=== PATIENT | male | born 1990 | race Caucasian/White ===

== ENCOUNTER 2021-05-04 06:05 | Emergency (ER) | payer BC ==
[2021-05-04] VITALS (9 sets, daily range): BP systolic 106–129; BP diastolic 59–79
[~2021-05-04] VITALS: Ht 182.9 cm; Wt 113.6 kg
--- NOTE | 2021-05-04 06:30 | NUR ---
PATIENT VOMITED X2, MD AWARE.
[2021-05-04] MEDS ORDERED: ondansetron/PF 4mg/2ml inj IV ONE (06:55)
[2021-05-04] MEDS ORDERED: normal saline 1000ml 1,000 ML IV ONE ×3 (06:55→08:50)
[2021-05-04] MEDS ORDERED: acetaminophen 325mg tablet PO ONE (06:55)
[2021-05-04 07:00] LABS: ALANINE AMINOTRANSFERASE 70 U/L (12-78); ALBUMIN 3.9 G/DL (3.4-5.0); ALBUMIN/GLOBULIN RATIO 0.8 (1.1-1.5); ALKALINE PHOSPHATASE 81 IU/L (46-116); ANION GAP 12 (8-16); ASPARTATE AMINO TRANSFERASE 30 U/L (10-37); BILIRUBIN,TOTAL 1.1 MG/DL (0.1-1.0); BLOOD UREA NITROGEN 13 MG/DL (7-18); BUN/CREATININE RATIO 9.6 (5.4-32.0); CHLORIDE 100 MMOL/L (99-107); CREATININE 1.35 MG/DL (0.60-1.10); GLUCOSE 155 MG/DL (70-104); POTASSIUM 4.3 MMOL/L (3.5-5.1); SODIUM 138 MMOL/L (135-145); TOTAL CARBON DIOXIDE 26.5 MMOL/L (24-32); TOTAL PROTEIN 8.5 G/DL (6.4-8.2); eGFR 61 ML/MIN
[2021-05-04 07:07] LABS: LIPASE 72 U/L (73-393)
[2021-05-04 07:14] LABS: BASOPHILS % (AUTO) 0.3 % (0-1); EOSINOPHILS % (AUTO) 0.4 % (0-6); HEMATOCRIT 48.1 % (42.0-52.0); HEMOGLOBIN 16.7 g/dl (14.0-17.9); LYMPHOCYTES # (AUTO) 1.4 X10'3 (1.1-4.8); LYMPHOCYTES % (AUTO) 18.3 % (21-51); MEAN CORPUSCULAR HEMOGLOBIN 30.5 PG (27.0-31.0); MEAN CORPUSCULAR HGB CONC 34.7 g/dL (33.0-36.5); MEAN PLATELET VOLUME 7.5 FL (7.4-10.4); MONOCYTES # (AUTO) 0.1 X10'3 (0-0.9); NEUTROPHILS # (AUTO) 5.9 X10'3 (1.8-7.7); PLATELET COUNT 180 X10'3 (140-440); RED BLOOD COUNT 5.47 X10'6 (4.70-6.10); WHITE BLOOD COUNT 7.4 X10'3 (4.5-11.0)
[2021-05-04] MEDS ORDERED: ketorolac tromethamine 15mg/ml inj. IV ONE (08:05)
[2021-05-04] MEDS ORDERED: iohexol 300mg/ml 100ml inj. ONE (10:13)
[2021-05-04] MEDS ORDERED: metroNIDAZOLE-Flagyl 500mg/NS 100 ML IV STA (11:52)
[2021-05-04] MEDS ORDERED: CefTRIAXone/D5W-Rocephin 1gm 50 ML IV ONE (11:55)
[2021-05-04] MEDS ORDERED: NO HOME MEDS (13:17)
[2021-05-04] MEDS ORDERED: HYDROmorphone 1 mg/ml syringe IV PRN (13:20)
[2021-05-04] MEDS ORDERED: ondansetron/PF 4mg/2ml inj IV PRN ×2 (13:20→14:15)
[2021-05-04] MEDS ORDERED: ringers solution, lacted 1,000 ML IV SCH ×2 (13:20→14:15)
--- NOTE | 2021-05-04 13:54 | NUR ---
Report given to Frannie DAWKINS in recovery. Pat taken to OR via [email or web address] at this time, grandmother at bedside.
[2021-05-04] MEDS ORDERED: dexamethasone sod phosphate 10mg/ml inj ONE (14:07)
[2021-05-04] MEDS ORDERED: sevoflurane 250ml liquid IH ONE (14:07)
[2021-05-04] MEDS ORDERED: morphine 4 MG/ML inj SYRINge IV PRN (14:15)
[2021-05-04] MEDS ORDERED: midazolam 1 mg/ML 2ml injection ONE (14:15)
[2021-05-04] MEDS ORDERED: fentaNYL/PF 50MCG/1 ML 2ML syringe ONE (14:15)
[2021-05-04] MEDS ORDERED: proCHLORperazine 10 MG/2 ml inj IV PRN (14:15)
[2021-05-04] MEDS ORDERED: meperidine/PF 25mg/ml syringe IV PRN ×3 (14:15)
[2021-05-04] MEDS ORDERED: morphine 2 MG/ML inj. syringe IV PRN (14:15)
[2021-05-04] MEDS ORDERED: propofol inj 20 ML IV ONE (14:16)
[2021-05-04] MEDS ORDERED: meperidine/PF 25mg/ml syringe ONE (14:16)
[2021-05-04] MEDS ORDERED: LIDOcaine 2% (20mg/ml) 5ml vial ONE (14:16)
[2021-05-04] MEDS ORDERED: rocuronium 10mg/ml inj IV ONE (14:20)
[2021-05-04] MEDS ORDERED: ondansetron/PF 4mg/2ml inj ONE (14:28)
[2021-05-04] MEDS ORDERED: BUPIVAcaine 0.5% inj/PF 30 ML ONE (14:28)
[2021-05-04] MEDS ORDERED: LIDOcaine 1% 30ml preserv. free vial ONE (14:45)
[2021-05-04] MEDS ORDERED: acetaminophen 1,000mg/100ml IV 100 ML IV ONE (15:07)
[2021-05-04] MEDS ORDERED: glycopyrrolate 0.2mg/ml inj ONE (15:09)
[2021-05-04] MEDS ORDERED: neostigmine methylsulfate 1 MG/ML 10ml vial ONE (15:09)
--- NOTE | 2021-05-04 15:28 | NUR ---
Received from OR via , accompanied by Anesthesiologist DR RM and report given by Anesthesiolgist. PT PRESENT WITH 20G LEFT AC, 3 BANDAIDS DRY AND INTACT, VSS. Addendum: 05/04/21 at 1533 by Frannie Duarte RN, RN Amended: Links added.
[2021-05-04] MEDS ORDERED: HYDROcodone/acetaminophen 5mg/325mg tablet PO PRN ×2 (15:35)
[2021-05-04] MEDS ORDERED: piperacillin/tazo 4.5gm/100ml 100 ML IV SCH (16:00)
--- NOTE | 2021-05-04 16:38 | NUR ---
ALL DISCHARGE CRITERIA HAS BEEN MET. VSS, PAIN AT A TOLERABLE LEVEL, VOIDING AND ABLE TO SAFELY AMBULATE AND TRANSFER SELF. IV TAKEN OUT WITHOUT ANY COMPLICATIONS. ALL DISCHARGE INSTRUCTIONS COVERED WITH PATIENT AND ALL QUESTIONS ANSWERED. PATIENT TAKEN OUT VIA WHEELCHAIR TO PERSONAL VEHICLE WHERE FAMILY/FRIEND DROVE PATIENT HOME. Addendum: 05/04/21 at 1656 by Frannie Duarte RN, RN Amended: Links added.
[2021-05-05] MEDS ORDERED: lactobacillus rhamnosus 10,000 MMU CELLS/CAPSULE PO SCH (20:00)
== END 2021-05-04 16:40 | disposition home or self-care (01) ==
LOC: ER 06:06
DX: K37 Unspecified appendicitis (principal); Z20.822 Contact with and (suspected) exposure to COVID-19; A41.9 Sepsis, unspecified organism; R16.1 Splenomegaly, not elsewhere classified; R10.13 Epigastric pain; R19.7 Diarrhea, unspecified; R50.9 Fever, unspecified
CPT/HCPCS: 36415; 44970; 71045; 74177; 80053; 83605; 83690; 83880; 84145; 84443; 84484; 85025; 87040; 87635; 93005; 96361; 96365; 96375; 99285; C9803; J0131; J0696; J1100; J1885; J2001; J2175; J2250; J2405; J2704; J2710; J3010; J3490; J7030; Q9967; A4215; A4618

== ENCOUNTER 2024-10-17 09:28 | Emergency (ER) | payer BC ==
[~2024-10-17] VITALS: Ht 185.4 cm; Wt 104.4 kg
[~2024-10-17 09:28] MED LIST: NO HOME MEDS
[2024-10-17] MEDS: ondansetron/PF 4mg/2ml inj IV ONE (10:29)
[2024-10-17] MEDS: normal saline 1000ml 1,000 ML IV ONE (10:29)
[2024-10-17 10:41] LABS: BASOPHILS % (AUTO) 0.5 % (0-1); EOSINOPHILS # (AUTO) 0.1 X10'3 (0-0.9); EOSINOPHILS % (AUTO) 1.9 % (0-6); HEMATOCRIT 46.8 % (42.0-52.0); HEMOGLOBIN 16.4 g/dl (14.0-17.9); LYMPHOCYTES # (AUTO) 1.9 X10'3 (1.1-4.8); LYMPHOCYTES % (AUTO) 40.3 % (21-51); MEAN CORPUSCULAR HEMOGLOBIN 30.3 PG (27.0-31.0); MEAN CORPUSCULAR HGB CONC 34.9 g/dL (33.0-36.5); MEAN CORPUSCULAR VOLUME 86.7 FL (78-98); MEAN PLATELET VOLUME 6.8 FL (7.4-10.4); MONOCYTES # (AUTO) 0.5 X10'3 (0-0.9); MONOCYTES % (AUTO) 9.9 % (2-12); NEUTROPHILS # (AUTO) 2.2 X10'3 (1.8-7.7); NEUTROPHILS % (AUTO) 47.4 % (42-75); PLATELET COUNT 146 X10'3 (140-440); RED CELL DISTRIBUTION WIDTH 13.1 % (11.5-14.5); WHITE BLOOD COUNT 4.6 X10'3 (4.5-11.0)
[2024-10-17 10:50] LABS: ALANINE AMINOTRANSFERASE 21 U/L (12-78); ALBUMIN 3.7 G/DL (3.4-5.0); ALKALINE PHOSPHATASE 106 IU/L (46-116); ANION GAP 14 (8-16); ASPARTATE AMINO TRANSFERASE 6 U/L (10-37); BILIRUBIN,TOTAL 0.5 MG/DL (0.1-1.0); BLOOD UREA NITROGEN 20 MG/DL (7-18); BUN/CREATININE RATIO 21.1 (10.0-20.0); CALCIUM 8.6 MG/DL (8.5-10.1); CHLORIDE 97 MMOL/L (99-107); CREATININE 0.95 MG/DL (0.60-1.10); GLUCOSE 334 MG/DL (70-104); LIPASE 29 U/L (16-77); POTASSIUM 4.3 MMOL/L (3.5-5.1); SODIUM 134 MMOL/L (135-145); TOTAL CARBON DIOXIDE 22.9 MMOL/L (24-32); TOTAL PROTEIN 7.5 G/DL (6.4-8.2); eCRCL 121 ML/MIN; eGFR 90 ML/MIN
[2024-10-17] MEDS: metFORMIN 500mg tablet PO ONE (11:30)
[2024-10-17 11:59] LABS: BILIRUBIN,URINE NEGATIVE (Neg); CLARITY,URINE CLEAR (Clear); COLOR,URINE YELLOW (Yellow); GLUCOSE, URINE >=1000 mg/dl (Neg); KETONES,URINE >=80 mg/dl (Neg); LEUKOCYTE ESTERASE ,URINE NEGATIVE (Neg); NITRITES, URINE NEGATIVE (Neg); OCCULT BLOOD,URINE NEGATIVE (Neg); PH,URINE 5.5 (4.8-8.0); PROTEIN,URINE NEGATIVE (Neg); UROBILINOGEN,URINE 0.2 E.U/dL (0.2-1.0)
[2024-10-17 12:03] LABS: UA COLLECTION TYPE CLN CATCH MIDSTREAM
[2024-10-17 12:06] VITALS: BP 127/86; PULSE 85; RESP 16; TEMP 98.2; O2SAT 99
[2024-10-17 12:08] LABS: BACTERIA,URINE NONE SEEN /HPF (Neg); MUCUS STRANDS NONE SEEN /LPF (Neg); RBC,URINE 0-2 /HPF (0-2); SQUAMOUS EPITHELIAL CELL,UR FEW /LPF (FEW); WBC,URINE 0-4 /HPF (0-4)
[2024-10-17] MEDS ORDERED: PIOG15TA8 PO (12:13)
== END 2024-10-17 12:26 | disposition home or self-care (01) ==
LOC: ER 09:29
DX: R73.9 Hyperglycemia, unspecified (principal); R42 Dizziness and giddiness
CPT/HCPCS: 36415; 80053; 81001; 82948; 83690; 85025; 96361; 96374; 99285; J2405; J7030